=== PATIENT | female | born 1960 | race Caucasian/White ===

== ENCOUNTER 2017-06-01 13:47 | Outpatient (CLI) | payer OTHER ==
--- NOTE | 2017-06-03 15:12 | Mammography Report ---
DIGITAL SCREENING MAMMOGRAM: 06/01/2017 CLINICAL INDICATION: A 56-year-old with history of late childbearing, family history of breast cance r for screening. COMPARISON: 05/2015, 05/2014, 05/2013, 05/2012, 05/2010 TECHNIQUE: Routine CC and MLO projections were obtained of the breasts. FINDINGS: The breasts demonstrate scattered fibroglandular densities bilaterally. Coarse and puncta te, typically benign calcifications are present. No suspicious masses, clustered microcalcifications , or regions of architectural distortion are identified. IMPRESSION: BENIGN FINDINGS. RECOMMENDATION: Routine annual screening unless otherwise clinically indicated. BIRADS CATEGORY 2 - BENIGN FINDINGS. STANDARD QUALIFYING STATEMENTS 1. This examination was reviewed with the aid of Computer-Aided Detection (CAD). 2. A negative or benign imaging report should not delay biopsy if clinically suspicious findings are present. Consider surgical consultation if warranted. More than 5% of cancers are not identified by i maging. 3. Dense breasts may obscure an underlying neoplasm. JOB #: [id number] EXT JOB #:[id number]
== END 2017-06-01 13:48 | disposition home or self-care (01) ==
LOC: DI.N 13:47
PROVIDERS: ATTEND Obstetrics & Gynecology
DX: Z12.31 Encounter for screening mammogram for malignant neoplasm of breast (principal); Z80.3 Family history of malignant neoplasm of breast
CPT/HCPCS: 77067

== ENCOUNTER 2018-06-28 11:33 | Outpatient (CLI) | payer OTHER ==
--- NOTE | 2018-06-29 08:44 | Mammography Report ---
Reason: SCREENING MAMMO Procedure Date: 06/28/2018 Accession Number: [id number] / [id number] Procedure: MGN - Screening Mammo Dig Bilat CPT Code: FULL RESULT: EXAM: Screening Mammo Dig Bilat DATE: 06/28/2018 11:58 AM CLINICAL HISTORY: Screening. Family history breast cancer mother at age 56 and 10 age 65 and cousin at age 50. No reported personal history of breast cancer. TECHNIQUE: Bilateral CC and MLO views were obtained. COMPARISON: 06/09/2017 through 05/24/2013 FINDINGS: The breasts demonstrate heterogeneously dense fibroglandular parenchyma bilaterally. Bilateral breasts: There are no suspicious masses, calcifications or areas of distortion. IMPRESSION: Negative examination RECOMMENDATION: Routine annual screening unless otherwise clinically indicated. Given family history, patient may be at elevated risk for development of breast cancer. Consider formal breast cancer risk assessment; if elevated, patient may benefit from advanced screening. BI-RADS CATEGORY 1: Negative STANDARD QUALIFYING STATEMENTS: 1. This examination was reviewed with the aid of Computer-Aided Detection (CAD). 2. A negative or benign imaging report should not preclude biopsy if clinically suspicious findings are present. 3. Dense breasts may obscure an underlying neoplasm. 4. This examination was reviewed without the aid of 3D breast imaging (tomosynthesis).
== END 2018-06-28 11:34 | disposition home or self-care (01) ==
LOC: DI.N 11:33
DX: Z12.31 Encounter for screening mammogram for malignant neoplasm of breast (principal); Z80.3 Family history of malignant neoplasm of breast
CPT/HCPCS: 77067

== ENCOUNTER 2019-07-04 12:24 | Outpatient (CLI) | payer OTHER ==
--- NOTE | 2019-07-05 08:36 | Mammography Report ---
Reason: SCREENING MAMMO Procedure Date: 07/04/2019 Accession Number: [id number] / [id number] Procedure: MGN - Screening Mammo Dig Bilat CPT Code: Final Report FULL RESULT: EXAM: Screening Mammo Dig Bilat DATE: 07/04/2019 12:49 PM CLINICAL HISTORY: Screening encounter. History of late childbearing. Family history of breast cancer in the mother at the age of 56. TECHNIQUE: (B) - Bilateral CC and MLO views were obtained. COMPARISON: 06/28/2018 through 07/24/2009. PARENCHYMAL PATTERN: (D) - The breast(s) demonstrate(s) heterogeneously dense fibroglandular parenchyma. FINDINGS: There are coarse typically benign calcifications. There are no suspicious masses, calcifications, or areas of distortion. IMPRESSION: Benign findings. BI-RADS category 2. RECOMMENDATION: (ANNUAL) - Recommend routine annual screening mammography. BI-RADS CATEGORY: (2) - Benign Findings. STANDARD QUALIFYING STATEMENTS: 1. This examination was not reviewed with the aid of Computer-Aided Detection (CAD). 2. A negative or benign imaging report should not preclude biopsy if clinically suspicious findings are present. 3. Dense breasts may obscure an underlying neoplasm. 4. This examination was reviewed without the aid of 3D breast imaging (tomosynthesis).
== END 2019-07-04 12:25 | disposition home or self-care (01) ==
LOC: DI.N 12:24
PROVIDERS: ATTEND Obstetrics & Gynecology
DX: Z12.31 Encounter for screening mammogram for malignant neoplasm of breast (principal); Z80.3 Family history of malignant neoplasm of breast
CPT/HCPCS: 77067

== ENCOUNTER 2020-06-14 08:51 | Outpatient (CLI) | payer OTHER ==
--- NOTE | 2020-06-15 08:56 | Mammography Report ---
BILATERAL DIGITAL SCREENING MAMMOGRAM 3D/2D: 06/14/2020 CLINICAL: Family history of breast cancer. Routine screening. Comparison is made to exams dated: 07/04/2019 mammogram, 06/28/2018 mammogram, 06/01/2017 mammogram, 05/28/2015 mammogram, 05/29/2014 mammogram, and 05/24/2013 mammogram - [facility]. There are scattered fibroglandular elements in both breasts. There are benign calcifications in both breasts. No significant masses, calcifications, or other findings are seen in either breast. There has been no significant interval change. IMPRESSION: BENIGN There is no mammographic evidence of malignancy. A 1 year screening mammogram is recommended. This exam was interpreted at Station ID: [id number]. NOTE: For mammograms, a report in lay terms will be sent to the patient. Approximately 15% of breast malignancies will not be visualized mammographically. In the management of a palpable breast mass, a negative mammogram must not discourage biopsy of a clinically suspicious lesion. Electronically Signed By: Albaro Schroeder acr/penrad:06/14/2020 10:45:01 ACR BI-RADS Category 2: Benign Finding(s) 3342F PARENCHYMAL PATTERN: (A) - The breast(s) demonstrate(s) scattered fibroglandular densities. BI-RADS CATEGORY: (2) - 2 RECOMMENDATION: (ANNUAL) - Recommend routine annual screening mammography. [id number] 1 year screening LATERALITY: (B)
== END 2020-06-14 08:52 | disposition home or self-care (01) ==
LOC: DI.N 08:51
PROVIDERS: ATTEND Obstetrics & Gynecology
DX: Z12.31 Encounter for screening mammogram for malignant neoplasm of breast (principal); Z80.3 Family history of malignant neoplasm of breast

== ENCOUNTER 2021-06-17 10:54 | Outpatient (CLI) | payer OTHER ==
--- NOTE | 2021-06-18 14:09 | Mammography Report ---
BILATERAL DIGITAL SCREENING MAMMOGRAM 3D/2D: 06/17/2021 CLINICAL: Routine screening. Comparison is made to exams dated: 06/14/2020 mammogram, 07/04/2019 mammogram, 06/28/2018 mammogram, 06/01/2017 mammogram, 05/28/2015 mammogram, and 05/29/2014 mammogram - [facility]. There are scattered fibroglandular elements in both breasts. There are benign calcifications in both breasts. No significant masses, calcifications, or other findings are seen in either breast. There has been no significant interval change. IMPRESSION: BENIGN There is no mammographic evidence of malignancy. A 1 year screening mammogram is recommended. This exam was interpreted at Station ID: [id number]. NOTE: For mammograms, a report in lay terms will be sent to the patient. Approximately 15% of breast malignancies will not be visualized mammographically. In the management of a palpable breast mass, a negative mammogram must not discourage biopsy of a clinically suspicious lesion. Electronically Signed By: Rich Richard M.D. at/grantrad:06/17/2021 12:52:32 ACR BI-RADS Category 2: Benign Finding(s) 3342F PARENCHYMAL PATTERN: (A) - The breast(s) demonstrate(s) scattered fibroglandular densities. BI-RADS CATEGORY: (2) - 2 RECOMMENDATION: (ANNUAL) - Recommend routine annual screening mammography. [id number] 1 year screening LATERALITY: (B)
== END 2021-06-17 10:55 | disposition home or self-care (01) ==
LOC: DI.N 10:54
DX: Z12.31 Encounter for screening mammogram for malignant neoplasm of breast (principal)

== ENCOUNTER 2022-05-23 08:48 | Outpatient (CLI) | payer OTHER ==
--- NOTE | 2022-05-26 10:23 | Ultrasound Report ---
LIMITED ULTRASOUND OF RIGHT BREAST AND AXILLA: 05/23/2022 CLINICAL: Patient returns today to evaluate a focal asymmetry in the right breast. Diffuse right gato st pain. Comparison is made to exams dated: 05/23/2022 mammogram, 06/17/2021 mammogram, 06/14/2020 mammogram, 09/04/2018 mammogram, and 06/28/2018 mammogram - [facility]. Color flow and real-time ultrasound of the right breast 10 o'clock, and axilla regions were performed . Rodney scale images of the real-time examination were reviewed. There is a 1 cm x 1.1 cm x 0.6 cm oval mass with an angular margin in the right breast at 10 o'clock posterior depth 7 cm from the nipple. This oval mass is anechoic and hypoechoic with no posterior ac oustic shadowing or enhancement. This correlates with mammography findings. Color flow imaging demo nstrates that there is vascularity present. No significant abnormalities were seen sonographically in the right axilla. IMPRESSION: SUSPICIOUS OF MALIGNANCY The 1 cm x 1.1 cm x 0.6 cm oval mass in the right breast has a differential diagnosis of a solid mass or fibrocystic change and is at a low suspicion for malignancy. An ultrasound guided biopsy is maxwell mmended. The findings and recommendations were discussed with the patient by the onsite radiologist, Dr. Richard, at the time of the exam. Given that this finding may represent fibrocystic changes, if the m ass has decreased in size when the patient returns for biopsy then the biopsy may be deferred in favo r of 6-month follow up. If the mass is stable or increased in size, recommend continuing with the yoly eduled ultrasound-guided biopsy. No significant abnormalities were seen sonographically in the right axilla. This exam was interpreted at Station ID: [id number]. Electronically Signed By: Jonny Spann M.D. ar/:05/23/2022 16:11:23 Ultrasound BI-RADS: 4a Low suspicion for malignancy BI-RADS CATEGORY: (4a) - Low Susp Biopsy [id number] Immediate follow-up LATERALITY: (R)
--- NOTE | 2022-05-26 10:23 | Mammography Report ---
BILATERAL DIGITAL DIAGNOSTIC MAMMOGRAM 3D/2D: 05/23/2022 CLINICAL: Diffuse right breast pain. Comparison is made to exams dated: 06/17/2021 mammogram, 06/14/2020 mammogram, 07/04/2019 mammogram, 1 08/29/2017 mammogram, and 06/01/2017 mammogram - [facility]. Both breasts are heterogeneously dense, which may obscure small masses (category c / 51-75% glandular tissue). There is a developing 1.1 cm oval equal density focal asymmetry with an indistinct margin in the righ t breast at 10 o'clock posterior depth. This is increased in size. This finding may or may not cor respond with the reported diffuse right breast pain. No other significant masses, calcifications, or other findings are seen in either breast. IMPRESSION: INCOMPLETE: NEEDS ADDITIONAL IMAGING EVALUATION The developing 1.1 cm oval equal density focal asymmetry in the right breast is indeterminate. An ul trasound is recommended. Based on Tyrer-Cuzick model (a risk assessment model), the patient's lifetime risk is 31.4% and her 1 0 year risk is 13.1%. If a patient has an elevated risk, a more comprehensive evaluation should be co nsidered and/or a referral to a genetic counselor. The [place] [employer], [place] [employer], and NCCN Guidelines advise the consideration of Breast MRI as an adjunct to screening mammo graphy in patients whose "Lifetime risk to develop breast cancer" is 20% or higher. This exam was interpreted at Station ID: [id number]. NOTE: For mammograms, a report in lay terms will be sent to the patient. Approximately 15% of breast malignancies will not be visualized mammographically. In the management of a palpable breast mass, a negative mammogram must not discourage biopsy of a clinically suspicious lesion. Electronically Signed By: Jonny mcdonnell/rosa m:05/23/2022 16:02:30 ACR BI-RADS Category 0: Incomplete 3340F PARENCHYMAL PATTERN: (D) - The breast(s) demonstrate(s) heterogeneously dense fibroglandular parenchy ma. BI-RADS CATEGORY: (0) - 0 Ultrasound [id number] Immediate follow-up LATERALITY: (R)
== END 2022-05-23 08:49 | disposition home or self-care (01) ==
LOC: DI 08:48
PROVIDERS: ATTEND Obstetrics & Gynecology
DX: N63.11 Unspecified lump in the right breast, upper outer quadrant (principal); N64.4 Mastodynia

== ENCOUNTER 2022-06-16 09:53 | Outpatient (CLI) | payer OTHER ==
[~2022-06-16 09:53] MED LIST: LIDOCAINE 1%-EPI 1:100000 20 ML MDV ONE; lidocaine 1% 20 ML MDV ONE
[2022-06-16] MEDS ORDERED: lidocaine 1% 20 ML MDV SUBQ ONE (12:33)
[2022-06-16] MEDS ORDERED: LIDOCAINE 1%-EPI 1:100000 20 ML MDV SUBQ ONE (12:33)
--- NOTE | 2022-06-17 09:54 | Mammography Report ---
UNILATERAL RIGHT DIGITAL DIAGNOSTIC MAMMOGRAM WITH LATEROMEDIAL POST-PROCEDURE IMAGING FOR MARKER LB CEMENT: 06/16/2022 CLINICAL: Post right breast ultrasound biopsy clip placement imaging. Comparison is made to exams dated: 05/23/2022 mammogram, 06/17/2021 mammogram, 06/14/2020 mammogram, 09/04/2018 mammogram, 06/28/2018 mammogram, and 06/01/2017 mammogram - [facility]. The right breast is heterogeneously dense, which may obscure small masses (category c / 51-75% glandu lar tissue). There is a developing 1.1 cm oval equal density focal asymmetry with an indistinct margin in the righ t breast at 10 o'clock posterior depth. This is increased in size. A biopsy marker is seen in this region. No other significant masses or calcifications are seen in the breast. IMPRESSION: INCOMPLETE: NEEDS ADDITIONAL IMAGING EVALUATION Biopsy clip placement as above. This exam was interpreted at Station ID: [id number]. NOTE: For mammograms, a report in lay terms will be sent to the patient. Approximately 15% of breast malignancies will not be visualized mammographically. In the management of a palpable breast mass, a negative mammogram must not discourage biopsy of a clinically suspicious lesion. Electronically Signed By: Tiffanie hernandez/:06/16/2022 13:33:30 ACR BI-RADS Category 0: Incomplete 3340F PARENCHYMAL PATTERN: (D) - The breast(s) demonstrate(s) heterogeneously dense fibroglandular sunny walker. BI-RADS CATEGORY: (0) - 0 Biopsy follow-up recall n/a LATERALITY: (B)
--- NOTE | 2022-06-18 10:54 | Ultrasound Report ---
ULTRASOUND GUIDED BIOPSY RIGHT BREAST USING VACUUM DEVICE WITH MARKING DEVICE INSERTED AND POST DIGIT AL MAMMOGRAPHIC IMAGIN06/16/2022 CLINICAL: Right breast mass. PATIENT CONSENT: Risks (minor bleeding, infection, vasovagal reaction and repeat procedure), benefits and alternatives were explained to the patient and written informed consent was obtained. Correlation is made to exams dated: 06/16/2022 mammogram, 05/23/2022 ultrasound, 05/23/2022 mammogram , 06/17/2021 mammogram, 06/14/2020 mammogram, and 07/04/2019 mammogram - [facility]. An ultrasound guided biopsy using real-time ultrasound was performed for the 1 cm x 1.1 cm x 0.6 cm i rregular shaped mass located in the right breast at 10 o'clock posterior depth 7 cm from the nipple. This was described on the previous ultrasound report. The skin was prepped in the usual manner. Lo carolyn anesthetic was administered to the access site. A 13 gauge biopsy needle was placed adjacent to the abnormality under ultrasound guidance. Once the needle was documented to be in the correct locat ion, eight specimens were obtained using the Mammotome biopsy system. A clip was inserted into the b iopsy cavity. Post procedure digital mammographic imaging demonstrates the location device at the ta rgeted area. The specimens were sent to the laboratory for pathological analysis. IMPRESSION: ULTRASOUND GUIDED BIOPSY BENIGN Ultrasound guided biopsy of the 1 cm x 1.1 cm x 0.6 cm mass in the right breast at 10 o'clock posteri or depth 7 cm from the nipple was successful. Pathology indicates benign fibrocystic changes (FC), apocrine microcysts with mild epithelial hyperpl tanner. No in situ or invasive carcinoma. Pathology results are concordant with imaging findings. Return to annual mammogram screening schedule is recommended. Results and recommendations will be c ommunicated to the ordering provider's office. This exam was interpreted at Station ID: [id number]. Tiffanie hernandez,william/:06/18/2022 09:52:48 BI-RADS CATEGORY: () - RECOMMENDATION: (ADDMAM) - Recommend additional mammographic views. [id number] return to screening LATERALITY: (B)
== END 2022-06-16 09:54 | disposition home or self-care (01) ==
LOC: DI 09:53
PROVIDERS: ATTEND Obstetrics & Gynecology
DX: N60.11 Diffuse cystic mastopathy of right breast (principal); N62 Hypertrophy of breast
CPT/HCPCS: 19083